=== PATIENT | male | born 1995 | race African-American/Black ===

== ENCOUNTER 2020-01-28 19:42 | Inpatient (IN) ==
[2020-01-28] MEDS ORDERED: NS 0.9% 1000 ml BAG 2,000 ML IV ONE (19:50)
[2020-01-28] MEDS ORDERED: Lorazepam PYXIS KEY PRN (19:57)
[2020-01-28] MEDS ORDERED: LORazepam 2 mg VIAL 1 ml IV PUSH ONE (19:57)
[2020-01-28] MEDS ORDERED: diPHENhydraMINE IV 50 MG/ML 1 ml VIAL (BENADRYL) IV ONE (19:57)
[2020-01-28 20:54] LABS: Hematocrit 44 % (42-52); Hemoglobin 13.8 g/dL (14.0-18.0); Mean Corpuscular HGB Conc 32 g/dL (31-36); Mean Corpuscular Hemoglobin 25 pg (27-31); Mean Corpuscular Volume 79 fL (80-94); Mean Platelet Volume 8.3 fL (7.4-10.4); Platelet Count 377 10^3/uL (150-450); Red Blood Count 5.54 10^6 /uL (4.18-5.48); Red Cell Distribution Width 15 % (10-15); White Blood Count 16.3 10^3/uL (3.5-10.8)
[2020-01-28 21:28] LABS: Albumin 4.3 g/dL (3.2-5.2); CO2 Carbon Dioxide 22 mmol/L (22-32); Calcium 8.8 mg/dL (8.6-10.3); Chloride 106 mmol/L (101-111); Sodium 141 mmol/L (135-145)
[2020-01-28 21:30] LABS: Anion Gap 13 mmol/L (2-11); Potassium 5.1 mmol/L (3.5-5.0)
[2020-01-28 21:31] LABS: Acetaminophen < 15 mcg/mL; Alcohol, S < 10 mg/dL (<10); Salicylate < 2.50 mg/dL (<30)
[2020-01-28 21:34] LABS: ALT 87 U/L (7-52); AST 68 U/L (13-39); Albumin/Globulin Ratio 1.3 (1-3); Alkaline Phosphatase 74 U/L (34-104); BUN/Creatinine Ratio 10.9 (8-20); Blood Urea Nitrogen 18 mg/dL (6-24); EGFR African American 61.3 (>60); EGFR Non-African American 50.7 (>60); Globulin 3.4 g/dL (2-4); Glucose 98 mg/dL (70-100); Total Protein 7.7 g/dL (6.4-8.9)
[2020-01-28 21:39] LABS: Troponin I 0.21 ng/mL (<0.03)
[2020-01-28] MEDS ORDERED: NS 0.9% 1000 ml BAG 1,000 ML IV ONE (22:37)
[2020-01-28 23:04] LABS: ABS Monocytes 1.8 10^3/ul (0-0.8); Eosinophil % 0.1 %; Lymphocyte % 6.4 %
[2020-01-29] MEDS ORDERED: NS 0.9% 1000 ml BAG 1,000 ML IV ONE (00:37)
[2020-01-29 01:14] LABS: Troponin I 0.23 ng/mL (<0.03)
[2020-01-29 02:39] LABS: C Reactive Protein 6.56 mg/L (<8.01); Magnesium 1.5 mg/dL (1.9-2.7)
[2020-01-29] MEDS ORDERED: NS 0.9% 1000 ml BAG 1,000 ML IV SCH ×2 (02:45→10:10)
[2020-01-29] MEDS ORDERED: Magnesium Sulfate IV 3 GM in NS 0.9% 100 ml BAG 100 ML IVPB ONE (03:04)
[2020-01-29 03:35] LABS: Urine Appearance Cloudy; Urine Bilirubin Negative (Negative); Urine Blood Negative (Negative); Urine Color Yellow; Urine Glucose 2+(150 mg/dL) (Negative); Urine Ketones Negative (Negative); Urine Nitrite Negative (Negative); Urine Protein 2+(100 mg/dL) (Negative); Urine Specific Gravity 1.012 (1.010-1.030); Urine Urobilinogen Negative (Negative)
[2020-01-29 03:45] LABS: Urine Bacteria 1+ (Absent); Urine Creatinine Concentration 96.12 mg/dL; Urine Red Blood Cell Trace(0-2/hpf) (Absent); Urine Squamous Epithelial Cell Present (Absent); Urine White Blood Cell 2+(11-20/hpf) (Absent)
[2020-01-29 03:57] LABS: Urine Benzodiazepine Screen None Detected (None Detect); Urine Opiates Screen None Detected (None Detect)
[2020-01-29 06:12] LABS: ABS Basophils 0.1 10^3/ul (0-0.2); ABS Lymphocytes 3.1 10^3/ul (1.0-4.8); ABS Monocytes 0.9 10^3/ul (0-0.8); Eosinophil % 0.1 %; Hematocrit 37 % (42-52); Hemoglobin 12.3 g/dL (14.0-18.0); Lymphocyte % 18.9 %; Mean Corpuscular HGB Conc 33 g/dL (31-36); Mean Corpuscular Hemoglobin 25 pg (27-31); Mean Corpuscular Volume 77 fL (80-94); Mean Platelet Volume 8.7 fL (7.4-10.4); Platelet Count 313 10^3/uL (150-450); Red Blood Count 4.84 10^6 /uL (4.18-5.48); Red Cell Distribution Width 15 % (10-15); White Blood Count 16.6 10^3/uL (3.5-10.8)
[2020-01-29 06:29] LABS: Anion Gap 6 mmol/L (2-11); CO2 Carbon Dioxide 25 mmol/L (22-32); Calcium 7.9 mg/dL (8.6-10.3); Chloride 106 mmol/L (101-111); Sodium 137 mmol/L (135-145)
[2020-01-29 06:35] LABS: BUN/Creatinine Ratio 12.9 (8-20); Blood Urea Nitrogen 18 mg/dL (6-24); EGFR African American 74.2 (>60); EGFR Non-African American 61.3 (>60); Glucose 97 mg/dL (70-100)
[2020-01-29 06:52] LABS: Troponin I 0.29 ng/mL (<0.03)
[2020-01-29] MEDS ORDERED: Buprenorp/Nalox 8-2 MG FILM SL FILM SCH (09:00)
[2020-01-29 09:19] LABS: Creatine Kinase 4400 U/L (10-223)
[2020-01-29 09:38] LABS: Troponin I 0.21 ng/mL (<0.03)
[2020-01-29 09:50] LABS: % Iron Saturation 9 % (15-55); Iron 27 ug/dL (50-212); Total Iron Binding Capacity 304 mcg/dL (250-450); Transferrin 217 mg/dL (203-362)
[2020-01-29 10:10] LABS: Ferritin 356.2 ng/mL (24-336)
[2020-01-29 10:17] LABS: Folate 16.09 ng/mL (>3.99)
[2020-01-29 10:24] LABS: Corrected Retic Count 0.6 % (0.5-1.5); Hematocrit for Retic CNT 39 % (42-52); Immature Retic Fraction 0.33; RBC Retic Count 4.95 10^6/uL (4.18-5.48)
[2020-01-29 13:31] LABS: Troponin I 0.18 ng/mL (<0.03)
[2020-01-29] MEDS: Buprenorp/Nalox 8-2 MG FILM SL FILM SCH ×2 (13:49→21:57)
[2020-01-29 21:23] LABS: CKMB ng/mL 34.8 ng/mL (0.6-6.3)
[2020-01-29 21:30] LABS: Magnesium 1.8 mg/dL (1.9-2.7)
[2020-01-29 21:47] LABS: Creatine Kinase 4135 U/L (10-223)
[2020-01-29] MEDS ORDERED: Magnesium Sulfate 2 gm BAG 2 GM/50 ML BAG IVPB ONE (22:16)
[2020-01-30 03:26] LABS: Troponin I 0.07 ng/mL (<0.03)
[2020-01-30 07:13] LABS: ABS Basophils 0.1 10^3/ul (0-0.2); ABS Eosinophils 0.2 10^3/ul (0-0.6); ABS Lymphocytes 2.6 10^3/ul (1.0-4.8); ABS Monocytes 0.5 10^3/ul (0-0.8); Eosinophil % 2.2 %; Hematocrit 38 % (42-52); Hemoglobin 12.9 g/dL (14.0-18.0); Lymphocyte % 27.8 %; Mean Corpuscular HGB Conc 34 g/dL (31-36); Mean Corpuscular Hemoglobin 26 pg (27-31); Mean Corpuscular Volume 77 fL (80-94); Platelet Count 335 10^3/uL (150-450); Red Blood Count 4.98 10^6 /uL (4.18-5.48); Red Cell Distribution Width 15 % (10-15); White Blood Count 9.3 10^3/uL (3.5-10.8)
[2020-01-30] MEDS ORDERED: Magnesium Sulfate IV 1GM/100ML 1 GM/100 ML BAG IV ONE (07:18)
[2020-01-30 07:29] LABS: Albumin 3.1 g/dL (3.2-5.2); Albumin/Globulin Ratio 1.2 (1-3); BUN/Creatinine Ratio 13.1 (8-20); Calcium 7.8 mg/dL (8.6-10.3); EGFR African American 100.3 (>60); EGFR Non-African American 82.9 (>60); Globulin 2.5 g/dL (2-4); Potassium 4.7 mmol/L (3.5-5.0); Total Bilirubin 0.4 mg/dL (0.2-1.0); Total Protein 5.6 g/dL (6.4-8.9)
[2020-01-30 07:58] LABS: C Reactive Protein 12.75 mg/L (<8.01)
[2020-01-30] MEDS: Buprenorp/Nalox 8-2 MG FILM SL FILM SCH (08:27)
[2020-01-30] MEDS ORDERED: NS 0.9% 1000 ml BAG 1,000 ML IV SCH (10:00)
[2020-01-30 11:58] LABS: Hepatitis B Surface Antigen Nonreactive (Nonreactive)
[2020-01-30 12:16] LABS: Hepatitis C Antibody Negative (Negative)
[2020-01-30] MEDS ORDERED: Vancomycin 1,000 MG in NS 0.9% 250 ml 250 ML IVPB ONE (17:08)
[2020-01-30] MEDS ORDERED: Vancomycin 1,500 MG in NS 0.9% 250 ml 250 ML IVPB ONE (17:40)
[2020-01-30 17:55] LABS: Activated Partial Thrombo Time 28.8 seconds (26.0-38.0); INR 1.03 (0.82-1.09)
[2020-01-30] MEDS ORDERED: cefTRIAXone 2 GM ADDV.VIAL 2 GM in NS 0.9% 100 ml BAG 100 ML IV SCH (18:00)
[2020-01-30] MEDS ORDERED: Vancomycin per Pharmacy 1 EA NOTE FOLLOW UP SCH (18:00)
[2020-01-30] MEDS: DOXEPIN 10 MG PO SCH (20:06)
[2020-01-31] MEDS: Vancomycin 1,000 MG in NS 0.9% 250 ml 250 ML IV SCH ×3 (03:27→20:03)
[2020-01-31 05:47] LABS: ABS Basophils 0.1 10^3/ul (0-0.2); ABS Eosinophils 0.3 10^3/ul (0-0.6); ABS Lymphocytes 2.3 10^3/ul (1.0-4.8); ABS Monocytes 0.5 10^3/ul (0-0.8); Eosinophil % 5.2 %; Hematocrit 38 % (42-52); Hemoglobin 12.4 g/dL (14.0-18.0); Lymphocyte % 45.9 %; Mean Corpuscular HGB Conc 33 g/dL (31-36); Mean Corpuscular Hemoglobin 25 pg (27-31); Mean Corpuscular Volume 77 fL (80-94); Mean Platelet Volume 7.9 fL (7.4-10.4); Nucleated Red Blood Cells % 0.1; Platelet Count 364 10^3/uL (150-450); Red Blood Count 4.97 10^6 /uL (4.18-5.48); Red Cell Distribution Width 15 % (10-15); White Blood Count 4.9 10^3/uL (3.5-10.8)
[2020-01-31 06:04] LABS: ALT 81 U/L (7-52); AST 90 U/L (13-39); Albumin/Globulin Ratio 1.2 (1-3); Alkaline Phosphatase 63 U/L (34-104); Anion Gap 3 mmol/L (2-11); BUN/Creatinine Ratio 13.5 (8-20); Blood Urea Nitrogen 14 mg/dL (6-24); C Reactive Protein 6.45 mg/L (<8.01); CO2 Carbon Dioxide 30 mmol/L (22-32); Calcium 8.1 mg/dL (8.6-10.3); Chloride 106 mmol/L (101-111); EGFR African American 103.7 (>60); EGFR Non-African American 85.7 (>60); Globulin 2.6 g/dL (2-4); Glucose 85 mg/dL (70-100); Magnesium 1.6 mg/dL (1.9-2.7); Potassium 4.6 mmol/L (3.5-5.0); Sodium 139 mmol/L (135-145); Total Protein 5.6 g/dL (6.4-8.9)
[2020-01-31 06:10] LABS: Troponin I 0.03 ng/mL (<0.03)
[2020-01-31 07:06] LABS: Erythrocyte Sed Rate 4 mm/Hr (0-14)
[2020-01-31] MEDS ORDERED: Magnesium Sulfate 2 gm BAG 2 GM/50 ML BAG IVPB ONE (09:02)
[2020-01-31] MEDS: Cefepime 2 GM in Dextrose 2 GM/50 ML BAG IV SCH ×2 (11:23→22:29)
[2020-01-31] MEDS: DOXEPIN 10 MG PO SCH (20:11)
[2020-02-01] MEDS: Vancomycin 1,000 MG in NS 0.9% 250 ml 250 ML IV SCH ×2 (03:40→14:37)
[2020-02-01] MEDS: Cefepime 2 GM in Dextrose 2 GM/50 ML BAG IV SCH ×2 (09:13→22:28)
[2020-02-01] MEDS ORDERED: Vancomycin Trough Check NOTE FOLLOW UP ONE (11:30)
[2020-02-01 11:55] LABS: ABS Basophils 0.1 10^3/ul (0-0.2); ABS Eosinophils 0.2 10^3/ul (0-0.6); ABS Lymphocytes 1.9 10^3/ul (1.0-4.8); ABS Monocytes 0.5 10^3/ul (0-0.8); Eosinophil % 4.7 %; Hematocrit 39 % (42-52); Hemoglobin 12.6 g/dL (14.0-18.0); Lymphocyte % 36.5 %; Mean Corpuscular HGB Conc 33 g/dL (31-36); Mean Corpuscular Hemoglobin 25 pg (27-31); Mean Corpuscular Volume 77 fL (80-94); Mean Platelet Volume 8.1 fL (7.4-10.4); Nucleated Red Blood Cells % 0.2; Platelet Count 419 10^3/uL (150-450); Red Blood Count 5.06 10^6 /uL (4.18-5.48); Red Cell Distribution Width 15 % (10-15); White Blood Count 5.3 10^3/uL (3.5-10.8)
[2020-02-01 12:48] LABS: HIV 4th Generation Nonreactive (Nonreactive)
[2020-02-01] MEDS: Vancomycin 1,250 MG in NS 0.9% 250 ml 250 ML IV SCH ×2 (14:43→20:57)
[2020-02-01] MEDS ORDERED: Magnesium Sulfate IV 1GM/100ML 1 GM/100 ML BAG IV ONE (16:30)
[2020-02-01] MEDS: DOXEPIN 10 MG PO SCH (21:03)
[2020-02-02] MEDS: Vancomycin 1,250 MG in NS 0.9% 250 ml 250 ML IV SCH ×3 (05:25→20:40)
[2020-02-02 06:31] LABS: ABS Eosinophils 0.3 10^3/ul (0-0.6); ABS Lymphocytes 1.9 10^3/ul (1.0-4.8); ABS Monocytes 0.5 10^3/ul (0-0.8); Eosinophil % 6.9 %; Hematocrit 40 % (42-52); Hemoglobin 13.1 g/dL (14.0-18.0); Lymphocyte % 45.1 %; Mean Corpuscular HGB Conc 33 g/dL (31-36); Mean Corpuscular Hemoglobin 25 pg (27-31); Mean Corpuscular Volume 77 fL (80-94); Mean Platelet Volume 7.9 fL (7.4-10.4); Nucleated Red Blood Cells % 0.2; Platelet Count 424 10^3/uL (150-450); Red Blood Count 5.16 10^6 /uL (4.18-5.48); Red Cell Distribution Width 15 % (10-15); White Blood Count 4.2 10^3/uL (3.5-10.8)
[2020-02-02 06:55] LABS: Albumin 3.5 g/dL (3.2-5.2); Albumin/Globulin Ratio 1.2 (1-3); BUN/Creatinine Ratio 17.2 (8-20); Calcium 8.8 mg/dL (8.6-10.3); EGFR African American 117.9 (>60); EGFR Non-African American 97.5 (>60); Globulin 2.9 g/dL (2-4); Magnesium 1.8 mg/dL (1.9-2.7); Potassium 4.5 mmol/L (3.5-5.0); Total Bilirubin 0.5 mg/dL (0.2-1.0); Total Protein 6.4 g/dL (6.4-8.9)
[2020-02-02] MEDS ORDERED: Magnesium Sulfate 2 gm BAG 2 GM/50 ML BAG IVPB ONE (08:14)
[2020-02-02] MEDS: Cefepime 2 GM in Dextrose 2 GM/50 ML BAG IV SCH ×2 (10:54→22:34)
[2020-02-02] MEDS: DOXEPIN 10 MG PO SCH (20:52)
[2020-02-03] MEDS ORDERED: Vancomycin Trough Check NOTE FOLLOW UP ONE (05:30)
[2020-02-03 06:04] LABS: EGFR African American 101.4 (>60); EGFR Non-African American 83.8 (>60)
[2020-02-03 06:12] LABS: Vancomycin Trough 16.6 mcg/mL
[2020-02-03] MEDS: Vancomycin 1,250 MG in NS 0.9% 250 ml 250 ML IV SCH ×3 (06:20→20:56)
[2020-02-03] MEDS: Cefepime 2 GM in Dextrose 2 GM/50 ML BAG IV SCH ×2 (11:01→23:19)
[2020-02-03 12:59] LABS: C-ANCA Negative (Negative)
[2020-02-04] MEDS: Vancomycin 1,250 MG in NS 0.9% 250 ml 250 ML IV SCH ×2 (06:12→14:03)
[2020-02-04] MEDS: Cefepime 2 GM in Dextrose 2 GM/50 ML BAG IV SCH (11:22)
[2020-02-04] MEDS: Trimethop/Sulfamethox 800/160 TAB PO SCH (21:26)
[2020-02-05] MEDS: Trimethop/Sulfamethox 800/160 TAB PO SCH (09:47)
[2020-02-05 12:27] VITALS: BP 135/77
[2020-02-06] MEDS ORDERED: Vancomycin Trough Check NOTE FOLLOW UP ONE (13:30)
== END 2020-02-05 15:30 | DRG 812 ==
LOC: EDBD → ED 19:42 → MEDTELE 19:42
PROVIDERS: ADMIT Internal Medicine; ATTEND Internal Medicine